=== PATIENT | male | born 1985 | race Caucasian/White ===

== ENCOUNTER 2018-02-04 16:17 | Emergency (ER) | payer OTHER ==
[2018-02-04] MEDS: ONDANSETRON (ODT) 4 MG TAB ODT (19:41)
[2018-02-04] MEDS: HYDROCODONE/APAP (5/325) TAB PO (19:42)
== END 2018-02-04 21:44 | disposition home or self-care (01) ==
LOC: FTE 16:17
DX: S92.521A Displaced fracture of middle phalanx of right lesser toe(s), initial encounter for closed fracture (principal); R06.2 Wheezing; V49.50XA Passenger injured in collision with unspecified motor vehicles in traffic accident, initial encounter
CPT/HCPCS: 71045; 73562; 73630; 99284-25